=== PATIENT | male | born 1945 | race African-American/Black ===

== ENCOUNTER 2018-12-25 17:11 | Inpatient (IN) ==
[2018-12-25] MEDS ORDERED: SODIUM CHLORIDE 0.9% 1,000 ML IV STA (17:27)
[2018-12-25 17:52] LABS: Basophils % 0.4 % (0.0-0.8); Eosinophils # 0.1 10*3/uL (0.0-0.87); Eosinophils % 1.1 % (0.00-10.9); Hematocrit 31.7 VOL% (42.0-52.0); Hemoglobin 10.3 GM/DL (14.0-18.0); Immature Granulocytes % 0.4 %; Immature Granulocytes Absolute 0.02 #; Lymphocytes # 0.7 10*3/uL (1.4-4.0); Lymphocytes % 12.6 % (21.2-54.2); Mean Corpuscular HGB Conc 32.5 GM/DL (32-36); Mean Corpuscular Volume 88.5 FL (87-102); Mean Platelet Volume 11.6 FL (9.6-12.0); Monocytes % 5.1 % (1.7-12.7); Neutrophils % 80.4 % (38.7-73.9); Platelet Count 207 T/CUMM (130-400); Red Blood Count 3.58 MC/CUMM (3.8-5.5); Red Cell Distribution Width 13.2 % (9.3-17.3); White Blood Count 5.5 T/CUMM (4-12)
[2018-12-25 18:03] LABS: Albumin 3.5 G/DL (3.4-5.0); Bilirubin,Total 1.6 MG/DL (0.2-1.0); Calcium 9.6 MG/DL (8.5-10.1); Osmolality,Calculated 302.5 MOS/KG (273-304); Total Protein 7.9 G/DL (6.4-8.3)
[2018-12-25] MEDS ORDERED: MAGNESIUM SULF RIDER 2 GM in PREMIX 1 EACH IV PRN (19:17)
[2018-12-25] MEDS ORDERED: MAGNESIUM SULF RIDER 4 GM in PREMIX 1 EACH IV PRN (19:17)
[2018-12-25] MEDS ORDERED: GLUCAGON 1 MG VIAL IM PRN ×2 (19:17)
[2018-12-25] MEDS ORDERED: DEXTROSE 50% 25 GM/50 ML VIAL IV PRN ×2 (19:17)
[2018-12-25] MEDS ORDERED: ONDANSETRON 4 MG/2 ML VIAL IV PRN (19:17)
[2018-12-25] MEDS ORDERED: ENOXAPARIN 30 MG/0.3 ML SYRINGE SUBCUT SCH (19:30)
[2018-12-25] MEDS ORDERED: METHOCARBAMOL 750 MG TABLET PO PRN (19:37)
[2018-12-25] MEDS ORDERED: hydrALAZINE 20 MG/1 ML VIAL IV PRN (20:14)
[2018-12-25] MEDS: SODIUM CHLORIDE 0.9% 1,000 ML IV SCH (20:46)
[2018-12-25] MEDS ORDERED: LOSARTAN 50 MG TABLET PO SCH (21:00)
[2018-12-25] MEDS: INSULIN LISPRO 100 UNIT/ML SUBCUT SCH (21:38)
[2018-12-25] MEDS: FUROSEMIDE 20 MG/2 ML VIAL IV SCH (21:39)
[2018-12-25] MEDS: BRIMONIDINE 0.2% OPH SOLN 5 ML BOTTLE BOTH EYES SCH (21:39)
[2018-12-25] MEDS: GABAPENTIN 600 MG TABLET PO SCH (21:39)
[2018-12-25] MEDS: hydrALAZINE 25 MG TABLET PO SCH (21:39)
[2018-12-25 22:40] LABS: Apearance,Urine CLEAR (Clear); Bilirubin,Urine Negative (Negative); Blood, Urine Moderate mg/dL (Negative); Glucose,Urine (UA) >=500 mg/dL (Negative); Ketones,Urine 5 mg/dL (Negative); Nitrite,Urine Negative (Negative); Protein,Urine 100 MG/DL; RBC,Urine 1 /HPF (0-4); Squamous Epithelial Cell,Urine Occasional /HPF (0-10); Urine Color Straw (Yellow); Urine Specific Gravity 1.006 (1.001-1.035); Urine Urobilinogen < 2.0 EU/DL (0.2-1.0); WBC,Urine <1 /HPF (0-6)
[2018-12-26 05:43] LABS: Basophils % 0.4 % (0.0-0.8); Eosinophils # 0.1 10*3/uL (0.0-0.87); Eosinophils % 2.2 % (0.00-10.9); Hematocrit 33.6 VOL% (42.0-52.0); Hemoglobin 11.1 GM/DL (14.0-18.0); Immature Granulocytes % 0.2 %; Immature Granulocytes Absolute 0.01 #; Lymphocytes % 19.7 % (21.2-54.2); Mean Platelet Volume 11.7 FL (9.6-12.0); Monocytes % 6.6 % (1.7-12.7); Neutrophils % 70.9 % (38.7-73.9); Platelet Count 191 T/CUMM (130-400); Red Blood Count 3.82 MC/CUMM (3.8-5.5); Red Cell Distribution Width 13.1 % (9.3-17.3)
[2018-12-26 06:18] LABS: Calcium 9.9 MG/DL (8.5-10.1); Osmolality,Calculated 301.5 MOS/KG (273-304); Risk Ratio 4.55; Thyroid Stimulating Hormone 1.21 uIU/ml (0.358-3.74); VLDL CHOLESTEROL 51.2 MG/DL
[2018-12-26] MEDS ORDERED: Mirabegron [Myrbetriq] 25 MG PO SCH (09:00)
[2018-12-26] MEDS: GABAPENTIN 600 MG TABLET PO SCH ×2 (10:19→22:29)
[2018-12-26] MEDS: amLODIPine 10 MG TABLET PO SCH (10:19)
[2018-12-26] MEDS: PANTOPRAZOLE 40 MG TABLET PO SCH (10:19)
[2018-12-26] MEDS: FERROUS SULFATE 325 MG TABLET PO SCH (10:19)
[2018-12-26] MEDS: INSULIN LISPRO 100 UNIT/ML SUBCUT SCH ×4 (10:19→22:29)
[2018-12-26] MEDS: FUROSEMIDE 20 MG/2 ML VIAL IV SCH (10:19)
[2018-12-26] MEDS: hydrALAZINE 25 MG TABLET PO SCH ×2 (10:19→22:29)
[2018-12-26] MEDS: ASPIRIN CHEW 81 MG TABLET PO SCH (10:19)
[2018-12-26] MEDS: BRIMONIDINE 0.2% OPH SOLN 5 ML BOTTLE BOTH EYES SCH ×3 (10:19→22:30)
[2018-12-26] MEDS ORDERED: INSULIN REGULAR 100 UNIT/ML IV ONE (13:53)
[2018-12-26] MEDS: SODIUM CHLORIDE 0.9% 1,000 ML IV SCH (16:44)
[2018-12-26] MEDS ORDERED: ENOXAPARIN 40 MG/0.4 ML SYRINGE SUBCUT SCH (21:00)
[2018-12-27 05:41] LABS: Calcium 9.4 MG/DL (8.5-10.1)
[2018-12-27] MEDS: INSULIN LISPRO 100 UNIT/ML SUBCUT SCH ×4 (07:43→21:20)
[2018-12-27] MEDS: BRIMONIDINE 0.2% OPH SOLN 5 ML BOTTLE BOTH EYES SCH ×3 (09:00→21:23)
[2018-12-27] MEDS: GABAPENTIN 600 MG TABLET PO SCH ×2 (09:00→21:19)
[2018-12-27] MEDS: PANTOPRAZOLE 40 MG TABLET PO SCH (09:01)
[2018-12-27] MEDS: ASPIRIN CHEW 81 MG TABLET PO SCH (09:01)
[2018-12-27] MEDS: hydrALAZINE 25 MG TABLET PO SCH ×2 (09:01→21:19)
[2018-12-27] MEDS: FERROUS SULFATE 325 MG TABLET PO SCH (09:01)
[2018-12-27] MEDS: amLODIPine 10 MG TABLET PO SCH (09:01)
[2018-12-27] MEDS: SODIUM CHLORIDE 0.9% 1,000 ML IV SCH (15:35)
[2018-12-27] MEDS ORDERED: INSULIN GLARGINE 100 UNIT/ML SUBCUT SCH (21:00)
[2018-12-28 06:01] LABS: Basophils % 0.2 % (0.0-0.8); Eosinophils # 0.3 10*3/uL (0.0-0.87); Eosinophils % 5.9 % (0.00-10.9); Hematocrit 36.4 VOL% (42.0-52.0); Hemoglobin 11.7 GM/DL (14.0-18.0); Immature Granulocytes % 0.4 %; Immature Granulocytes Absolute 0.02 #; Lymphocytes # 0.9 10*3/uL (1.4-4.0); Lymphocytes % 19.7 % (21.2-54.2); Mean Corpuscular HGB Conc 32.1 GM/DL (32-36); Mean Corpuscular Volume 89.7 FL (87-102); Mean Platelet Volume 12.2 FL (9.6-12.0); Monocytes % 6.1 % (1.7-12.7); Neutrophils % 67.7 % (38.7-73.9); Platelet Count 171 T/CUMM (130-400); Red Blood Count 4.06 MC/CUMM (3.8-5.5); Red Cell Distribution Width 13.2 % (9.3-17.3); White Blood Count 4.7 T/CUMM (4-12)
[2018-12-28 06:30] LABS: Calcium 9.5 MG/DL (8.5-10.1)
[2018-12-28] MEDS: INSULIN LISPRO 100 UNIT/ML SUBCUT SCH ×2 (08:12→11:39)
[2018-12-28] MEDS: hydrALAZINE 25 MG TABLET PO SCH (09:47)
[2018-12-28] MEDS: PANTOPRAZOLE 40 MG TABLET PO SCH (09:47)
[2018-12-28] MEDS: GABAPENTIN 600 MG TABLET PO SCH (09:47)
[2018-12-28] MEDS: amLODIPine 10 MG TABLET PO SCH (09:47)
[2018-12-28] MEDS: ASPIRIN CHEW 81 MG TABLET PO SCH (09:47)
[2018-12-28] MEDS: BRIMONIDINE 0.2% OPH SOLN 5 ML BOTTLE BOTH EYES SCH (09:48)
[2018-12-28] MEDS: FERROUS SULFATE 325 MG TABLET PO SCH (09:48)
[2018-12-28 11:15] VITALS: BP 159/83
[2018-12-28] MEDS: SODIUM CHLORIDE 0.9% 1,000 ML IV SCH (11:39)
== END 2018-12-28 13:30 | disposition home health service (06) | DRG 682 ==
LOC: EDUNIT# → EDBD → N.ED 17:11 → SUATTDRO 19:20 → N.EDINP 19:20 → N.2E 19:58
PROVIDERS: ADMIT Internal Medicine; ATTEND Hospitalist